=== PATIENT | female | born 1955 | race Caucasian/White ===

== ENCOUNTER 2018-08-16 09:31 | Outpatient (CLI) | payer OTHER ==
[2018-08-16] MEDS ORDERED: LIDOCAINE-MPF 1%, 5ML ONE ×2 (09:41→11:13)
== END 2018-08-23 10:19 | disposition home or self-care (01) ==
LOC: RAD 09:31
PROVIDERS: ATTEND Surgery
DX: E04.1 Nontoxic single thyroid nodule (principal)
CPT/HCPCS: 10022; 76942; 88172; 88173; 88177

== ENCOUNTER 2018-09-25 06:01 | Inpatient (IN) | payer OTHER ==
[~2018-09-25] VITALS: Ht 157.5 cm; Wt 93.9 kg
[~2018-09-25 06:01] MED LIST: ADAL40KI IM; ASPI1TAB31 PO; ATOR20TA PO; B-12; CETI10CA PO; CHOL10003 PO; CYCL-259 PO; FOLI-17 PO; GLUC500T11 PO; HYDR-3240 PO; METH2.5T PO; METH4TAB7 PO; NAPR-685 PO; OMEP40CA6 PO; POTA10TA17 PO; TELM40TA PO
[2018-09-25] MEDS ORDERED: LACTATED RINGERS 1,000 ML IV SCH (06:27)
[2018-09-25 06:30] VITALS: BP 132/81
[2018-09-25] MEDS ORDERED: ACETAMINOPHEN 500 MG TABLET PO ONE (06:30)
[2018-09-25] MEDS ORDERED: FAMOTIDINE 20 MG TABLET PO ONE (06:30)
[2018-09-25] MEDS ORDERED: SCOPOLAMINE PATCH, 1.5MG PATCH.TD72 TD ONE (06:30)
[2018-09-25] MEDS ORDERED: MIDAZOLAM 1 MG/ML, 2ML ONE (06:36)
[2018-09-25] MEDS ORDERED: FENTANYL PF 250 MCG/5ML ONE (06:37)
[2018-09-25] MEDS ORDERED: ROCURONIUM 10MG/ML,5ML ONE (06:39)
[2018-09-25] MEDS ORDERED: PROPOFOL 10 MG/ML, 20ML ONE (06:39)
[2018-09-25] MEDS ORDERED: LIDOCAINE-MPF 2% ,5ML ONE (06:39)
[2018-09-25] MEDS ORDERED: ONDANSETRON 2MG/ML, 2ML ONE (06:39)
[2018-09-25] MEDS ORDERED: NEOSTIGMINE 1 MG/ML, 10ML ONE (06:39)
[2018-09-25] MEDS ORDERED: DEXAMETHASONE 4 MG/ML, 1ML ONE (06:39)
[2018-09-25] MEDS ORDERED: GLYCOPYRROLATE 0.2MG/1ML, 5ML ONE (06:39)
[2018-09-25] MEDS ORDERED: CEFAZOLIN 1,000 MG ONE (06:39)
[2018-09-25] MEDS ORDERED: SUCCINYLCHOLINE 20 MG/ML, 10ML ONE (06:39)
[2018-09-25] MEDS ORDERED: LABETALOL 5MG/ML, 20ML IV PRN (07:00)
[2018-09-25] MEDS ORDERED: ONDANSETRON 2MG/ML, 2ML IV PRN ×2 (07:00→11:00)
[2018-09-25] MEDS ORDERED: ONDANSETRON ODT 8 MG PO PRN (07:00)
[2018-09-25] MEDS ORDERED: PROMETHAZINE 25 MG/ML, 1ML IV PRN (07:00)
[2018-09-25] MEDS ORDERED: hydrALAzine 20 MG/ML, 1ML IV PRN (07:00)
[2018-09-25] MEDS ORDERED: OXYcodone 5 MG/5 ML ORAL.SOL UDC PO PRN (07:00)
[2018-09-25] MEDS ORDERED: FENTANYL PF 100 MCG/2ML ONE ×2 (08:25→09:02)
[2018-09-25] MEDS ORDERED: OXYcodone 5 MG/5 ML ORAL.SOL UDC ONE (09:02)
[2018-09-25] MEDS ORDERED: HYDROmorphone 2 MG/ML, 1ML ONE (09:02)
[2018-09-25] MEDS: HYDROmorphone 2 MG/ML, 1ML IVPush PRN ×3 (09:07→09:32)
[2018-09-25] MEDS: FENTANYL PF 100 MCG/2ML IV PRN ×2 (09:07→09:14)
[2018-09-25] MEDS ORDERED: HUMIRA 40 MG IM SCH (11:00)
[2018-09-25] MEDS ORDERED: CETIRIZINE 10 MG TABLET PO PRN (11:00)
[2018-09-25] MEDS ORDERED: ASA/APAP/ CAFFEINE TABLET PO PRN (11:00)
[2018-09-25] MEDS: HYDROcodone/APAP 5/325 TABLET PO PRN ×3 (13:54→22:49)
[2018-09-25 15:10] VITALS: BP 115/79
[2018-09-25] MEDS: morphine SULFATE 10 MG/ML, 1ML IV PRN ×2 (15:13→21:52)
[2018-09-25] MEDS: LACTATED RINGERS 1,000 ML IV SCH (15:24)
[2018-09-25] MEDS: POTASSIUM CITRATE 10 MEQ HOMEMEDPO SCH ×2 (15:24→21:00)
[2018-09-25 18:20] LABS: ALBUMIN 2.9 g/dL (3.4-5.0); CALCIUM 7.5 mg/dL (8.5-10.1)
[2018-09-25 20:17] VITALS: BP 122/80
[2018-09-25] MEDS ORDERED: ATORVASTATIN 20 MG TABLET PO SCH (21:00)
[2018-09-25] MEDS: NAPROXEN 500 MG TABLET PO SCH (22:49)
[2018-09-26 01:01] LABS: ALBUMIN 2.9 g/dL (3.4-5.0); CALCIUM 7.4 mg/dL (8.5-10.1)
[2018-09-26] MEDS ORDERED: CALCIUM CARBONATE 500 MG TAB.CHEW PO ONE (01:30)
[2018-09-26 02:53] VITALS: BP 132/87
[2018-09-26] MEDS: HYDROcodone/APAP 5/325 TABLET PO PRN ×2 (03:04→11:56)
[2018-09-26] MEDS: LACTATED RINGERS 1,000 ML IV SCH (05:20)
[2018-09-26] MEDS ORDERED: OMEPRAZOLE 20 MG CAPSULE.DR PO SCH (06:00)
[2018-09-26] MEDS: CALCIUM CARBONATE 500 MG TAB.CHEW PO SCH ×2 (06:43→11:58)
[2018-09-26 06:51] LABS: ALBUMIN 3.2 g/dL (3.4-5.0); CALCIUM 7.7 mg/dL (8.5-10.1)
[2018-09-26] MEDS ORDERED: FOLIC ACID 1 MG TABLET PO SCH (09:00)
[2018-09-26] MEDS ORDERED: TELMISARTAN 40 MG HOMEMEDPO SCH (09:00)
[2018-09-26] MEDS ORDERED: CHOLECALCIFEROL 1,000 UNIT TABLET PO SCH (09:00)
[2018-09-26] MEDS ORDERED: CYCLOBENZAPRINE 10 MG TABLET PO SCH (09:00)
[2018-09-26] MEDS: POTASSIUM CITRATE 10 MEQ HOMEMEDPO SCH (09:05)
[2018-09-26] MEDS: NAPROXEN 500 MG TABLET PO SCH (09:06)
[2018-09-26] MEDS ORDERED: LEVO125T5 PO (09:37)
[2018-09-26] MEDS ORDERED: CALC200T3 PO (09:41)
[2018-09-26 09:45] VITALS: BP 101/68
[2018-09-26 12:25] VITALS: BP 104/69
[2018-09-26 12:32] LABS: ALBUMIN 3.1 g/dL (3.4-5.0); CALCIUM 7.9 mg/dL (8.5-10.1)
== END 2018-09-26 13:18 | disposition home or self-care (01) | DRG 626 ==
LOC: OUT 06:01 → 4NOR 10:10 → OUT 10:24 → DCLOUNGE 09-26 13:02
PROVIDERS: ADMIT Surgery; ATTEND Surgery
PROC: 0GSP0ZZ Reposition Left Inferior Parathyroid Gland, Open Approach (ICD-10-PCS; 2018-09-25)
PROC: 0GTK0ZZ Resection of Thyroid Gland, Open Approach (ICD-10-PCS; principal; 2018-09-25 07:30)
DX: E04.2 Nontoxic multinodular goiter (principal); E44.0 Moderate protein-calorie malnutrition; I25.10 Atherosclerotic heart disease of native coronary artery without angina pectoris; M19.90 Unspecified osteoarthritis, unspecified site; Z72.0 Tobacco use; Z82.61 Family history of arthritis; Z80.8 Family history of malignant neoplasm of other organs or systems; Z82.49 Family history of ischemic heart disease and other diseases of the circulatory system
CPT/HCPCS: 36415; J3490; 82040; 82310; 88307; G0378; J0690; J1100; J1170; J2250; J2405; J2704; J2710; J3010; J7509; C1760; J0330; J2270; J7120

== ENCOUNTER 2019-09-25 12:18 | Outpatient (CLI) | payer OTHER ==
[~2019-09-25 12:18] MED LIST changes: +CALC200T3 PO; +LEVO125T5 PO; +OMEP40CA42 PO; -OMEP40CA6 PO
== END 2019-09-25 23:59 | disposition home or self-care (01) ==
LOC: CVU 12:18
PROVIDERS: ATTEND Internal Medicine Cardiovascular Disease
DX: M79.604 Pain in right leg (principal); R06.02 Shortness of breath; M79.662 Pain in left lower leg; R60.9 Edema, unspecified; I10 Essential (primary) hypertension; Z87.891 Personal history of nicotine dependence
CPT/HCPCS: 93308; 93321; 93325; 93970

== ENCOUNTER → 2020-02-08 | Outpatient (CLI) | payer OTHER | END | disposition home or self-care (01) | LOC: WOUND 08:44 | PROVIDERS: ATTEND Family Medicine | DX: L97.822 Non-pressure chronic ulcer of other part of left lower leg with fat layer exposed (principal); L97.811 Non-pressure chronic ulcer of other part of right lower leg limited to breakdown of skin; L97.211 Non-pressure chronic ulcer of right calf limited to breakdown of skin; I25.10 Atherosclerotic heart disease of native coronary artery without angina pectoris; I10 Essential (primary) hypertension; E66.01 Morbid (severe) obesity due to excess calories; I25.2 Old myocardial infarction; L40.59 Other psoriatic arthropathy; L40.50 Arthropathic psoriasis, unspecified; E89.0 Postprocedural hypothyroidism; Z79.899 Other long term (current) drug therapy; Z87.891 Personal history of nicotine dependence; Z90.49 Acquired absence of other specified parts of digestive tract | CPT/HCPCS: 11042; 97597; 99215 ==

== ENCOUNTER 2020-02-15 09:30 | Outpatient (CLI) | payer OTHER | END 2020-02-15 23:59 | disposition home or self-care (01) | LOC: WOUND 09:30 | PROVIDERS: ATTEND Family Medicine | DX: L97.822 Non-pressure chronic ulcer of other part of left lower leg with fat layer exposed (principal); L97.811 Non-pressure chronic ulcer of other part of right lower leg limited to breakdown of skin; L97.211 Non-pressure chronic ulcer of right calf limited to breakdown of skin; I25.10 Atherosclerotic heart disease of native coronary artery without angina pectoris; I10 Essential (primary) hypertension; E66.01 Morbid (severe) obesity due to excess calories; I25.2 Old myocardial infarction; L40.59 Other psoriatic arthropathy; L40.50 Arthropathic psoriasis, unspecified; E89.0 Postprocedural hypothyroidism; Z79.899 Other long term (current) drug therapy; Z87.891 Personal history of nicotine dependence; Z90.49 Acquired absence of other specified parts of digestive tract | CPT/HCPCS: 97597 ==

== ENCOUNTER → 2020-02-22 | Outpatient (CLI) | payer OTHER | END | disposition home or self-care (01) | LOC: WOUND 09:53 | PROVIDERS: ATTEND Internal Medicine Cardiovascular Disease | DX: L97.822 Non-pressure chronic ulcer of other part of left lower leg with fat layer exposed (principal); L97.811 Non-pressure chronic ulcer of other part of right lower leg limited to breakdown of skin; L97.211 Non-pressure chronic ulcer of right calf limited to breakdown of skin; I25.10 Atherosclerotic heart disease of native coronary artery without angina pectoris; I10 Essential (primary) hypertension; E66.01 Morbid (severe) obesity due to excess calories; I25.2 Old myocardial infarction; L40.59 Other psoriatic arthropathy; L40.50 Arthropathic psoriasis, unspecified; E89.0 Postprocedural hypothyroidism; Z79.899 Other long term (current) drug therapy; Z87.891 Personal history of nicotine dependence; Z90.49 Acquired absence of other specified parts of digestive tract | CPT/HCPCS: 99213 ==

== ENCOUNTER → 2020-03-07 | Outpatient (CLI) | payer OTHER | END | disposition home or self-care (01) | LOC: WOUND 09:26 | PROVIDERS: ATTEND Surgery | DX: L97.822 Non-pressure chronic ulcer of other part of left lower leg with fat layer exposed (principal); L97.211 Non-pressure chronic ulcer of right calf limited to breakdown of skin; I25.10 Atherosclerotic heart disease of native coronary artery without angina pectoris; L40.59 Other psoriatic arthropathy; L40.50 Arthropathic psoriasis, unspecified; I10 Essential (primary) hypertension; I25.2 Old myocardial infarction; E89.0 Postprocedural hypothyroidism; E66.01 Morbid (severe) obesity due to excess calories; Z68.41 Body mass index [BMI] 40.0-44.9, adult; Z90.49 Acquired absence of other specified parts of digestive tract; Z79.899 Other long term (current) drug therapy; Z87.891 Personal history of nicotine dependence | CPT/HCPCS: 97597 ==

== ENCOUNTER → 2020-03-14 | Outpatient (CLI) | payer OTHER | END | disposition home or self-care (01) | LOC: WOUND 09:27 | PROVIDERS: ATTEND Internal Medicine | DX: L97.821 Non-pressure chronic ulcer of other part of left lower leg limited to breakdown of skin (principal); S81.801A Unspecified open wound, right lower leg, initial encounter; I25.10 Atherosclerotic heart disease of native coronary artery without angina pectoris; L40.50 Arthropathic psoriasis, unspecified; I10 Essential (primary) hypertension; I25.2 Old myocardial infarction; E89.0 Postprocedural hypothyroidism; E66.01 Morbid (severe) obesity due to excess calories; Z68.41 Body mass index [BMI] 40.0-44.9, adult; Z90.49 Acquired absence of other specified parts of digestive tract; Z79.899 Other long term (current) drug therapy; Z87.891 Personal history of nicotine dependence; Y93.39 Activity, other involving climbing, rappelling and jumping off; Y93.89 Activity, other specified; Y92.89 Other specified places as the place of occurrence of the external cause; Y99.8 Other external cause status | CPT/HCPCS: 97597 ==

== ENCOUNTER → 2020-03-28 | Outpatient (CLI) | payer OTHER | END | disposition home or self-care (01) | LOC: WOUND 09:23 | PROVIDERS: ATTEND Family Medicine | DX: L97.822 Non-pressure chronic ulcer of other part of left lower leg with fat layer exposed (principal); L97.211 Non-pressure chronic ulcer of right calf limited to breakdown of skin; I25.10 Atherosclerotic heart disease of native coronary artery without angina pectoris; L40.59 Other psoriatic arthropathy; E66.01 Morbid (severe) obesity due to excess calories; I10 Essential (primary) hypertension; I25.2 Old myocardial infarction; E89.0 Postprocedural hypothyroidism; Z68.41 Body mass index [BMI] 40.0-44.9, adult; Z90.49 Acquired absence of other specified parts of digestive tract; Z79.899 Other long term (current) drug therapy; Z87.891 Personal history of nicotine dependence | CPT/HCPCS: 97597 ==